=== PATIENT | female | born 1980 | race Caucasian/White ===

== ENCOUNTER → 2024-04-09 09:08 | Outpatient (REF) | payer OTHER, SELFPAY | LOC: HWWDC 09:08 | PROVIDERS: ATTENDING PHYSICIAN Physician Assistant Medical; FAMILY PHYSICIAN Student in an Organized Health Care Education/Training Program | DX: Z12.31 Encounter for screening mammogram for malignant neoplasm of breast (principal) | CPT/HCPCS: 77063; 77067 ==

== ENCOUNTER → 2024-05-22 11:08 | Outpatient (REF) | payer OTHER, SELFPAY | LOC: HWRAD 11:08 | PROVIDERS: ATTENDING PHYSICIAN Surgery; FAMILY PHYSICIAN Family Medicine | DX: R31.9 Hematuria, unspecified (principal) | CPT/HCPCS: 76775 ==

== ENCOUNTER → 2024-07-31 08:56 | Outpatient (REF) | payer OTHER, SELFPAY | LOC: HWRAD 08:56 | PROVIDERS: ATTENDING PHYSICIAN Nurse Practitioner | DX: M25.532 Pain in left wrist (principal) | CPT/HCPCS: 73110 ==

== ENCOUNTER → 2024-12-23 09:50 | Outpatient (REF) | payer OTHER, SELFPAY | LOC: WDC 09:50 | PROVIDERS: ATTENDING PHYSICIAN Physician Assistant Medical | DX: N63.10 Unspecified lump in the right breast, unspecified quadrant (principal); N63.0 Unspecified lump in unspecified breast; N63.11 Unspecified lump in the right breast, upper outer quadrant | CPT/HCPCS: 76642; 77061; 77065 ==